=== PATIENT | female | born 1995 | race African-American/Black ===

== ENCOUNTER 2019-02-18 22:06 | Emergency (ER) | payer SELFPAY ==
[~2019-02-18] VITALS: Ht 175.3 cm; Wt 68.0 kg
[2019-02-18 22:08] VITALS: BP 121/77
--- NOTE | 2019-02-18 22:08 | NUR ---
PATIENT BIB [facility] TO ER CHAIR [facility]
--- NOTE | 2019-02-18 22:15 | NUR ---
PT IS A 23 Y/O FEMALE BIB [facility] WHO PRESENTS TO THE ED FOR PRE-BOOK. PER PD, PT HAS A FELONY CHARGE AND A SEARCH WARRANT WRITTEN BY A RESEARCH LABORATORY MANAGER FOR BLOOD DRAW. PER PD PT WAS PREV AT 2 FACILITIES AND PREV REFUSED BLOOD DRAW. PT REPORTS 10/10 ACHING CHEST WALL PAIN THAT DOES NOT RADIATE. PT DENIES SOB, N/V/D. PT AWAKE AND ALERT, RR EVEN/UNLABORED. PT REPOSITIONED FOR COMFORT, PT SITTING IN CHAIR E WITH PD. ER MD DR. PUENTE NOTIFIED. WILL CONTINUE TO MONITOR. [facility]---[facility]
--- NOTE | 2019-02-18 22:44 | NUR ---
Dr. eCdillo evaluating patient
[2019-02-18 22:59] VITALS: BP 121/77
--- NOTE | 2019-02-18 22:59 | NUR ---
PATIENT BIB [facility] [facility]. PATIENT EXAMINED BY DR. PUENTE. PATIENT MEDICALLY CLEARED AND RELEASED IN CUSTODY IN STABLE CONDITION. ORIGINAL PRE-BOOK FORM GIVEN TO OFFICER. PT DISCHARGED INTO CUSTODY OF [facility]. DISCHARGE INSTRUCTIONS AND PREBOOK FORM GIVEN TO [facility]. PT DISCHARGED INTO CUSTODY.
[2019-02-20 07:17] LABS: HEPATITIS B CORE AB TOTAL Negative (Negative); HEPATITIS B SURFACE ANTIBODY Reactive (.); HEPATITIS B SURFACE ANTIGEN Negative (Negative); HEPATITIS C VIRUS ANTIBODY <0.1 s/co ratio (0.0-0.9)
--- NOTE | 2019-02-21 09:15 | NUR ---
ADDENDUM: COPY OF BLOOD RESULTS GIVEN TO DETECTIVE [facility] OF [facility]. RESULTS EXPLAINED TO BY DR. BECKHAM WITH UNDERSTANDING.
== END 2019-02-18 22:59 ==
LOC: MED 22:06
DX: R07.9 Chest pain, unspecified (principal); H93.19 Tinnitus, unspecified ear; Z02.89 Encounter for other administrative examinations
CPT/HCPCS: 36415; 86704; 86706; 86803; 87340; 93005; 99284